=== PATIENT | male | born 1985 | race Caucasian/White ===

== ENCOUNTER 2021-02-22 10:58 | Emergency (ER) | payer BC ==
[~2021-02-22] VITALS: Ht 180.3 cm; Wt 70.3 kg
--- NOTE | 2021-02-22 11:09 | NUR ---
URINE GIVEN AND SENT TO LAB
--- NOTE | 2021-02-22 11:09 | NUR ---
TO ER BED 2, C/O DIZZINESS SINCE LAST NIGHT AND FLANK PAIN IN A WEEK, A&OX4, SEEN BY
--- NOTE | 2021-02-22 11:10 | NUR ---
SALINE LOCK ESTABLISHED, BLOOD DRAWN AND PICKED UP BY LAB
[2021-02-22 11:20] LABS: BILIRUBIN,URINE Negative (NEGATIVE); COLOR,URINE YELLOW (YELLOW); LEUKOCYTE ESTERASE ,URINE Negative (NEGATIVE); NITRITE, URINE Negative (NEGATIVE); PH,URINE 6.5 (5.0-8.0); PROTEIN,URINE Negative (NEGATIVE); UGLUCOSE Negative (NEGATIVE); UROBILINOGEN,URINE 0.2 EU/dL (0.2)
[2021-02-22 11:25] LABS: BASOPHILS # (AUTO) 0.1 K/uL (0.0-0.2); BASOPHILS % (AUTO) 0.9 % (0.0-2.0); EOSINOPHILS % (AUTO) 1.3 % (0.0-6.0); HEMATOCRIT 49 % (39-51); HEMOGLOBIN 17.2 g/dL (13.5-17.5); LYMPHOCYTES # (AUTO) 1.9 K/uL (0.8-4.8); LYMPHOCYTES % (AUTO) 31.2 % (20.0-44.0); MEAN CORPUSCULAR HGB CONC 35 g/dl (31.0-36.0); MEAN CORPUSCULAR VOLUME 90 fL (80-96); MONOCYTES # (AUTO) 0.4 K/uL (0.1-1.30); MONOCYTES % (AUTO) 6.6 % (2.0-12.0); NEUTROPHILS # (AUTO) 3.6 K/uL (1.8-8.9); PLATELET COUNT (AUTO) 245 K/uL (150-450); RED BLOOD CELL COUNT(AUTO) 5.46 MIL/uL (4.5-6.0)
[2021-02-22] MEDS ORDERED: IV NS 0.9% 1,000 ML BAG IV ONE (11:30)
[2021-02-22 11:34] LABS: CALCIUM, SERUM 9.6 mg/dL (8.5-10.1); CARBON DIOXIDE 26 mmol/L (21-32); CHLORIDE 106 mmol/L (98-107); CREATININE 0.8 mg/dL (0.6-1.3); GLUCOSE 120 mg/dL (74-106); POTASSIUM 3.8 mmol/L (3.5-5.1); SODIUM SERUM 144 mmol/L (136-145); UREA NITROGEN, BLOOD 12 mg/dL (7-18)
--- NOTE | 2021-02-22 11:38 | NUR ---
JALOUSIES INSTALLER AT BEDSIDE
[2021-02-22 11:40] LABS: ALANINE AMINOTRANSFERASE 18 U/L (12-78); ALBUMIN 4.3 g/dL (3.4-5.0); ALKALINE PHOSPHATASE 58 U/L (46-116); ASPARTATE AMINOTRANSFERASE 12 U/L (15-37); BILIRUBIN,DIRECT 0.2 mg/dL (0.0-0.2); TOTAL PROTEIN, SERUM 7.9 g/dL (6.4-8.2)
[2021-02-22 12:33] VITALS: BP 139/98
== END 2021-02-22 12:33 | disposition home or self-care (01) ==
LOC: ER 10:58
DX: R10.11 Right upper quadrant pain (principal); R10.12 Left upper quadrant pain; R42 Dizziness and giddiness; Z98.890 Other specified postprocedural states; Z88.6 Allergy status to analgesic agent
CPT/HCPCS: 36415; 71045; 80048; 80076; 81003; 83690; 84484; 85025; 93005; 96360; 99285; J7030